=== PATIENT | female | born 1965 | race Caucasian/White ===

== ENCOUNTER 2024-11-23 08:30 | Emergency (ER) | payer OTHER, SELFPAY ==
[2024-11-23 08:44] VITALS: BP 120/83
--- NOTE | 2024-11-23 11:29 | ED.MUSCINJ ---
HPI-Injury
General
Chief Complaint: Musculo-Skeletal Complaint
Source: patient
Exam Limitations: none
Time Seen by Provider: 11/23/24 10:54
History of Present Illness-Injury
Initial Injury comments:
59-year-old female presents complaining of right lateral foot pain. She was walking quite a bit yesterday and developed foot pain last evening. Since then she has been having difficulty ambulating. No known injury otherwise. No other complaints
at this time
Past History
Past History
ED Past Medical History: Psychiatric (borderlin personality disorder, History of hurting self.) and Other (GERD, Eating disorder.)
ED Past Surgical History: None
Social History
Tobacco: Former smoker
Alcohol: None
Drug: None
Personal: Single
Living: with roommate
Employment: Employed
Family History
Family History: Negative Early CAD
Phy Exam
Physical Exam
Physical Exam:
General: Well-appearing female no acute respiratory distress
Musculoskeletal exam: The right foot is tender over the base of the fifth metatarsal. The medial and lateral malleoli are nontender. She has increased pain with resisted foot eversion. The ankle stable to her drawer test
Injury Course
Orders/Labs/Results
Orders:
Orders
11/23/24 08:50
Foot, Right 3 View [CR Foot - Right Min 3 Views] Urgent
Comment:
Reason For Exam: pain
MDM/Problems Addressed
Differential Diagnosis Includes:
Right foot pain. Consider sprain versus tendinitis versus fracture
I have personally visualized x-rays of the right foot and reviewed the x-ray report. There is no acute finding. Patient having difficulty ambulating and will be placed in a boot for support. Stable for discharge
*Critical Care Note
Total Time (30-74mins, 75-104mins- exclusive of procedures): Not Applicable
ED Attending Note
-
Portions of this chart may have been created with voice recognition software.� Occasional wrong word or��sound alike� substitutions may have occurred due to the inherent limitations of voice recognition software.
Discharge Plan
Departure
Patient Disposition: Home (Routine Discharge)
Date of Disposition: 11/23/24
Time of Disposition: 11:32
Patient with high blood pressure during this ER visit?: No
Discharge Problem:
Acute foot pain
Instructions: Muscle and Bone Pain (DC)
Prescriptions:
No Action
vitamin E (dl, acetate) 100 UNITS capsule
100 units PO DAILY
docosahexaenoic acid-epa 1 CAP capsule
1 cap PO DAILY
acetaminophen [Tylenol Extra Strength] 500 MG tablet
1,000 mg PO Q6HPRN PRN (Reason: MILD PAIN)
paroxetine HCl 10 MG tablet
10 mg PO DAILY
trazodone 50 MG tablet
50 mg PO HS
clozapine 100 MG tablet
400 mg PO HS
atenolol 25 MG tablet
25 mg PO DAILY
famotidine 20 MG tablet
40 mg PO BID
lithium carbonate 300 MG capsule
900 mg PO HS
clozapine 25 MG tablet
50 mg PO DAILY
paroxetine HCl 40 MG tablet
40 mg PO DAILY
Lactobac 2-Bifido 1-S. therm [High Potency Probiotic] 1 CAP capsule
1 cap PO DAILY
doxycycline hyclate 100 MG capsule
100 mg PO BID Qty: 20 0RF
cefuroxime axetil 500 MG tablet
500 mg PO BID Qty: 14 0RF
Referrals:
UNKNOWN - PT DOES,NOT KNOW [Family Provider] -
Activity Restrictions/Additional Instructions:
Use boot for support when ambulating. Elevate for swelling. Use ibuprofen or Tylenol. Return if needed
Interventions
Interventions:
*Risk Screen - Suicide Last Done: 11/23/24 08:48
*General Assessment Last Done: 11/23/24 11:11
*Neglect/Abuse Screening Last Done: 11/23/24 11:11
*ED COVID-19 Vaccine History Last Done: 11/23/24 11:11
ED-Musculoskeletal Assessment Last Done: 11/23/24 11:11
Discharge Date and Time
Print Language: ROMANSH
[2024-11-23 11:39] VITALS: BP 132/84
== END 2024-11-23 11:42 | disposition home or self-care (01) ==
LOC: EMR 08:30
PROVIDERS: EMERGENCY PHYSICIAN Emergency Medicine
DX: M79.671 Pain in right foot (principal); R26.2 Difficulty in walking, not elsewhere classified; K21.9 Gastro-esophageal reflux disease without esophagitis; F50.9 Eating disorder, unspecified; F60.3 Borderline personality disorder; Z91.52 Personal history of nonsuicidal self-harm; Z87.891 Personal history of nicotine dependence
CPT/HCPCS: 99283; 29515; 73630